=== PATIENT | male | born 1965 | race African-American/Black ===

== ENCOUNTER 2020-11-27 11:30 | Emergency (ER) | payer BC, OTHER ==
[2020-11-27] MEDS ORDERED: Cyclobenzaprine 10 MG TAB ONE (16:21)
[2020-11-27] MEDS ORDERED: Ketorolac Tromethamine 30 MG/ML VIAL ONE (16:21)
== END 2020-11-27 18:05 | disposition home or self-care (01) ==
LOC: ERS 11:30
DX: S06.9X9A Unspecified intracranial injury with loss of consciousness of unspecified duration, initial encounter (principal); S16.1XXA Strain of muscle, fascia and tendon at neck level, initial encounter; S39.012A Strain of muscle, fascia and tendon of lower back, initial encounter; S70.01XA Contusion of right hip, initial encounter; W19.XXXA Unspecified fall, initial encounter
CPT/HCPCS: 70450; 72125; 72170; 96372; J1885

== ENCOUNTER 2024-03-05 12:26 | Day surgery (SDC) | payer BC ==
[2024-03-04 11:48] VITALS: BMI 28.1
[2024-03-05] MEDS ORDERED: Midazolam HCl 2 mg/2 ml Vial ONE (14:34)
[2024-03-05] MEDS ORDERED: PROPOFOL 20 ML ONE ×2 (14:34→15:14)
[2024-03-05] MEDS ORDERED: fentaNYL PF 100 MCG/2 ML SYRINGE ONE ×2 (14:34→16:32)
[2024-03-05] MEDS ORDERED: Bacitracin Zinc Ointment 30 gm TUBE ONE (14:39)
[2024-03-05] MEDS ORDERED: Bupivacaine PF 0.5% 30 ML VIAL ONE (14:39)
[2024-03-05] MEDS ORDERED: CEFAZOLIN 2 GM VIAL ONE (14:46)
[2024-03-05] MEDS ORDERED: Lidocaine 1% PF 5 ML VIAL ONE (15:04)
[2024-03-05] MEDS ORDERED: PHENYLEPHRINE-NS 100 MCG/ML 10 ML SYRINGE ONE (15:24)
[2024-03-05] MEDS ORDERED: Ondansetron PF 4 MG/2 ML Vial ONE (15:29)
[2024-03-05] MEDS ORDERED: Ketorolac Tromethamine 30 MG (1 mL) VIAL ONE (16:57)
[2024-03-05] MEDS ORDERED: HYDROcodone/Acetaminophen 5/325 mg Tablet ONE (16:57)
[2024-03-05] MEDS ORDERED: fentaNYL 50 mcg/mL 1 mL Vial ONE (17:13)
== END 2024-03-05 17:40 | disposition home or self-care (01) ==
LOC: SDC 12:26
PROVIDERS: ATTEND Orthopaedic Surgery Hand Surgery
PROC: 0PSQ04Z Reposition Left Metacarpal with Internal Fixation Device, Open Approach (ICD-10-PCS; principal; 2024-03-05)
DX: S62.323A Displaced fracture of shaft of third metacarpal bone, left hand, initial encounter for closed fracture (principal); I10 Essential (primary) hypertension; Z79.899 Other long term (current) drug therapy; W01.0XXA Fall on same level from slipping, tripping and stumbling without subsequent striking against object, initial encounter
CPT/HCPCS: A6223; C1713; J0665; J1885; J2250; J2405; J2704; J3010

== ENCOUNTER 2025-01-25 19:50 | Emergency (ER) | payer BC ==
[2025-01-25] MEDS ORDERED: HYDROcodone/Acetaminophen 5/325 mg Tablet ONE (21:09)
[2025-01-25] MEDS ORDERED: Boostrix 0.5 ML (Tdap) VIAL (>/=7 yrs of age) ONE (21:10)
== END 2025-01-25 22:27 | disposition home or self-care (01) ==
LOC: ERS 19:50
DX: S00.83XA Contusion of other part of head, initial encounter (principal); I10 Essential (primary) hypertension; W01.198A Fall on same level from slipping, tripping and stumbling with subsequent striking against other object, initial encounter
CPT/HCPCS: 70450; 70486; 72125; 90471; 90715